=== PATIENT | female | born 1980 | race Caucasian/White ===

== ENCOUNTER 2023-04-09 23:12 | Emergency (ER) | payer MEDICAID ==
[~2023-04-09] VITALS: Ht 162.6 cm; Wt 86.0 kg
[2023-04-09 23:27] VITALS: TEMP 97.7; O2SAT 98
[2023-04-10] MEDS ORDERED: SULF1TAB48 MT (01:40)
[2023-04-10] MEDS ORDERED: CEPH500C2 MT (01:40)
[2023-04-10] MEDS ORDERED: KETOROLAC 60MG/2ML VIAL IM ONE (01:45)
[2023-04-10 02:05] VITALS: BP 148/66; PULSE 68; RESP 17
[2023-04-11] MEDS ORDERED: METH-653 MT (23:10)
[2023-04-11] MEDS ORDERED: IBUP-2029 MT (23:10)
== END 2023-04-10 02:15 | disposition home or self-care (01) ==
LOC: ER 04-10 00:35
DX: S20.469A Insect bite (nonvenomous) of unspecified back wall of thorax, initial encounter (principal); X58.XXXA Exposure to other specified factors, initial encounter; Y93.89 Activity, other specified; Y92.89 Other specified places as the place of occurrence of the external cause; Y99.8 Other external cause status
CPT/HCPCS: 81025; 96372; 99283; J1885; Z7610

== ENCOUNTER 2023-04-11 21:00 | Emergency (ER) | payer MEDICAID ==
[~2023-04-11] VITALS: Ht 160 cm; Wt 86.0 kg
[~2023-04-11 21:00] MED LIST: CEPH500C2 MT; SULF1TAB48 MT
[2023-04-11 22:07] LABS: BASOPHILS % 0.2 % (0.0-2.0); HEMATOCRIT. 37.9 % (36.0-48.0); HEMOGLOBIN. 12.5 g/dL (12.0-16.0); LYMPHOCYTES % 7.8 % (20.0-50.0); MEAN CORPUSCULAR HEMOGLOBIN 27.6 pg (28.0-32.0); MEAN CORPUSCULAR HGB CONC 32.9 g/dL (31.0-37.0); MEAN PLATELET VOLUME 6.8 fl (7.4-10.4); MONOCYTES % 4.4 % (2.0-8.0); NEUTROPHILS % 86.6 % (40.0-76.0); PLATELET 353 x1000/uL (130-400); RED BLOOD CELL COUNT 4.51 mill/uL (4.2-5.4); RED CELL DISTRIBUTION WIDTH 18.3 % (11.6-14.6); WHITE BLOOD COUNT 7.6 x1000/uL (4.5-11.0)
[2023-04-11 22:15] VITALS: BP 120/65; PULSE 93; RESP 18; TEMP 99; O2SAT 97
[2023-04-11 22:24] LABS: HCG SCREEN NEGATIVE
[2023-04-11 22:30] LABS: ALANINE AMINOTRANSFERASE 26 IU/L (10-49); ALBUMIN 3.9 g/dL (3.2-4.8); ASPARTATE AMINOTRANSFERASE 23 IU/L (<34); BILIRUBIN TOTAL 0.7 mg/dL (0.1-1.0); CALCIUM 8.8 mg/dL (8.7-10.4); CARBON DIOXIDE 28 mEq/L (21-32); CHLORIDE 107 mEq/L (98-107); CREATININE 0.6 mg/dL (0.6-1.0); GLUCOSE 100 mg/dL (70-105); POTASSIUM 3.8 mEq/L (3.5-5.1); PROTEIN TOTAL 7.6 g/dL (6.0-8.3); SODIUM 139 mEq/L (136-145); UREA NITROGEN BLOOD 14 mg/dL (9-23)
[2023-04-11 22:59] LABS: CLARITY URINE CLEAR (CLEAR); COLOR URINE YELLOW (YELLOW); GLUCOSE URINE NEGATIVE (NEGATIVE); KETONES URINE 1+ (NEGATIVE); LEUKOCYTE ESTERASE URINE NEGATIVE (NEGATIVE); NITRITE URINE NEGATIVE (NEGATIVE); OCCULT BLOOD URINE NEGATIVE (NEGATIVE); PROTEIN URINE NEGATIVE (NEGATIVE)
[2023-04-11] MEDS ORDERED: IBUP-2029 MT (23:10)
[2023-04-11] MEDS ORDERED: METH-653 MT (23:10)
[2023-04-11] MEDS ORDERED: ONDANSETRON 4MG ODT PO ONE (23:15)
== END 2023-04-11 23:41 | disposition home or self-care (01) ==
LOC: ER 21:00
DX: S29.012A Strain of muscle and tendon of back wall of thorax, initial encounter (principal); Z90.49 Acquired absence of other specified parts of digestive tract; Z98.890 Other specified postprocedural states; Z98.51 Tubal ligation status; X58.XXXA Exposure to other specified factors, initial encounter; Y93.89 Activity, other specified; Y92.89 Other specified places as the place of occurrence of the external cause; Y99.8 Other external cause status
CPT/HCPCS: 36415; 80053; 81003; 84703; 85025; 99283